=== PATIENT | female | born 1940 ===

== ENCOUNTER 2022-07-22 21:34 | Emergency (ER) | payer MEDICARE, SELFPAY ==
--- NOTE | 2022-07-22 21:35 | ECG_ITS ---
Measurements Intervals [place] Rate: 92 P: 40 NM: 246 QRS: 23 QRSD: 107 T: 40 QT: 361 QTc: 448 Interpretive Statements SINUS RHYTHM WITH FIRST DEGREE AV BLOCK LOW QRS VOLTAGE IN PRECORDIAL LEADS MINIMAL Q WAVES- INFERIOR LEADS BORDERLINE ECG NO PREVIOUS ECG AVAILABLE FOR COMPARISON Electronically Signed On 07-23-2022 6:25:51 CDT by Aelx Llamas D.O.
[2022-07-22 21:37] VITALS: BP 131/82; PULSE 91; RESP 16; TEMP 36.7; O2SAT 95
--- NOTE | 2022-07-22 22:47 | PC.NURSE ---
Patient came up to triage desk to notify this RN that per her apple watch her heart rate had returned to normal. She no longer wanted to be seen. Patient encouraged to stay for further evaluation but she declined. The patient was encouraged to return to the ED with worsening symptoms or any additional concerns.
== END 2022-07-22 22:47 ==
PROVIDERS: Emergency Provider Preventive Medicine Aerospace Medicine; PCP Internal Medicine
DX: R00.2 Palpitations (principal)
CPT/HCPCS: 93005; 99199